=== PATIENT | male | born 1970 | race Caucasian/White ===

== ENCOUNTER 2017-11-17 18:15 | Emergency (ER) | payer OTHER, SELFPAY | END 2017-11-17 20:47 | disposition home or self-care (01) | PROVIDERS: Emergency Provider Nurse Practitioner; Visit Provider Nurse Practitioner | DX: S20.212A Contusion of left front wall of thorax, initial encounter (principal); W01.0XXA Fall on same level from slipping, tripping and stumbling without subsequent striking against object, initial encounter; F17.210 Nicotine dependence, cigarettes, uncomplicated; Z88.6 Allergy status to analgesic agent | CPT/HCPCS: 71101; 99201; G0238 ==

== ENCOUNTER 2018-02-11 19:33 | Emergency (ER) | payer OTHER, SELFPAY ==
[2018-02-11 19:34] VITALS: BP 142/79; PULSE 73; RESP 22; TEMP 37; O2SAT 96; BMI 31.7
--- NOTE | 2018-02-11 19:47 | CT_ITS ---
CT abdomen pelvis wo con CLINICAL INDICATION: Abdominal pain, generalized, abdominal distention ITS.REASON: hx of ascites ORDERING PHYSICIAN: Esteban Means MD PATIENT AGE: 47 years COMPARISON: None TECHNIQUE: Axial images obtained with sagittal and coronal reformats. PROCEDURE: Oral Contrast: None IV Contrast: None . FINDINGS: There is a medium-sized left-sided pleural effusion with compressive atelectatic changes. The liver has a shrunken irregular cirrhotic appearance. There is mild amount of ascites. Moderate amount fluid present around the gallbladder with a stone in the gallbladder neck region measuring 5 mm. Splenomegaly at 16 cm. Prominent paraesophageal and perisplenic and abdominal varices consistent with portal hypertension. There is infiltration of the mesenteric fat with diffuse ascites throughout the abdomen and pelvis. Infiltration may be related to the portal venous hypertension. Inflammatory or infectious process is not excluded. No evidence of appendicitis. No intestinal obstruction or free air.. No acute bony anomalies. There is mild mesenteric adenopathy IMPRESSION: 1. Moderate to large sized left pleural effusion with left lower lobe atelectasis. 2. Cirrhosis with portal venous hypertension with splenomegaly, paraesophageal and intra-abdominal varices, and a small amount of ascites. 3. Cholelithiasis. Moderate amount fluid is present around the gallbladder. 4. mild infiltration of mesenteric fat nonspecific. Mild mesenteric adenopathy nonspecific.
--- NOTE | 2018-02-11 19:47 | XR_ITS ---
XR chest 2V HISTORY: ITS.REASON: chest pain ORDERING PHYSICIAN: Esteban Means MD PATIENT AGE: 47 years COMPARISON: None available FINDINGS: Consolidation is present in the left lower lobe with left-sided medium-sized pleural effusion. The right lung and left upper lobe are clear. No acute bony anomalies. Unremarkable heart size. IMPRESSION: Medium-sized Left-sided pleural effusion with underlying atelectasis and/or infiltrate in the left lower lobe
[2018-02-11 19:58] LABS: Basophils # 0.1 K/mm3 (0-0.2); Basophils % 0.9 % (0.1-2.0); Eosinophils # 0.2 K/mm3 (0.0-0.4); Eosinophils % 3.5 % (0.1-12.0); Hematocrit 42.9 % (42.0-52.0); Hemoglobin 14.1 g/dL (14.1-18.0); Lymphocytes # 1.4 K/mm3 (0.7-4.5); Mean Corpuscular HGB Conc 32.9 g/dL (31.8-35.4); Mean Corpuscular Hemoglobin 35.4 pg (27.0-31.2); Mean Corpuscular Volume 107.6 fl (80-94); Mean Platelet Volume 8.7 fl (7.4-10.4); Monocytes # 0.4 K/mm3 (0.1-1.0); Monocytes % 7.4 % (1.7-9.3); Neutrophils # 3.1 K/mm3 (1.8-7.8); Neutrophils % 61.3 % (37.0-80.0); Platelet Count 79 K/mm3 (142-424); Red Blood Count 3.99 M/mm3 (4.60-6.20); Red Cell Distribution Width 15.8 % (11.5-17.5); White Blood Count 5.1 K/mm3 (4.8-10.8)
[2018-02-11 20:04] VITALS: BP 147/82; PULSE 77; RESP 21; O2SAT 97
[2018-02-11 20:21] LABS: Alanine Aminotransferase 71 U/L (12-78); Albumin Level 1.9 gm/dL (3.4-5.0); Albumin/Globulin Ratio 0.4 (1.1-1.8); Alkaline Phosphatase 381 U/L (46-116); Anion Gap 7.9 mEq/L (5-15); Aspartate Amino Transferase 120 U/L (15-37); Bilirubin,Total 3.5 mg/dL (0.2-1.0); Blood Urea Nitrogen 4 mg/dL (7-18); CKMB Relative Index 0.6 U/L (0-4.0); Calcium 7.2 mg/dL (8.5-10.1); Carbon Dioxide 24 mmol/L (21.0-32.0); Chloride 109 mmol/L (98-107); Creatine Kinase 116 U/L (39-308); Creatine Kinase MB 0.7 mg/ml (0.0-3.6); Creatinine Clearance Estimated 179 mL/min (0-300); Creatinine,Serum 0.71 mg/dL (0.70-1.30); Estimated Glomerular Filt Rate 119 ml/min (>60); GFR (African American) 145 ML/MIN (>60); Globulin 4.7 gm/dl (1.3-3.2); Glucose 131 mg/dL (74-106); Potassium 3.9 mmoL/L (3.5-5.1); Sodium 137 mmol/L (136-145); Total Protein,Serum 6.6 gm/dL (6.4-8.2); Troponin I < 0.02 ng/ml (0.00-0.06)
[2018-02-11 20:23] LABS: Ammonia 89 umol/L (19-54)
[2018-02-11 20:24] LABS: Microscopic, Urine URINE MICROSCOPIC (MICROSCOPIC)
[2018-02-11 20:27] LABS: Appearance,Urine CLEAR (Clear); Blood, Urine 1+ (Negative); Color,Urine ORANGE (Yellow); Glucose,Urine (UA) Negative (Negative); Ketones,Urine Negative (Negative); Leukocyte Esterase,Urine Negative (Negative); Nitrate,Urine Negative (Negative); PH,Urine 6.5 (5.0-8.5); Protein,Urine Negative (Negative); Specific Gravity, Urine >= 1.030 (1.005-1.030)
[2018-02-11 20:29] LABS: Amylase 73 U/L (25-125); Lipase 392 u/L (73-393)
[2018-02-11 20:33] LABS: Bilirubin,Urine 1+ (Negative)
[2018-02-11 20:38] LABS: Lactic Acid 0.7 mmol/L (0.4-2.0)
[2018-02-11 20:45] LABS: Amphetamine/Metha Screen,Urine Negative ng/mL (<1000); Barbiturates Screen,Urine Negative ng/mL (<200); Benzodiazepines Screen,Urine Negative ng/mL (200); Cannabinoid Screen,Urine Positive ng/mL (<50); Cocaine Screen,Urine Negative ng/g (<300); Methadone Screen,Urine Negative ng/mL (<300); Opiate Screen,Urine Negative ng/mL (<300); Phencyclidine Screen,Urine Negative ng/mL (<25)
[2018-02-11 20:52] LABS: Bacteria,Urine Trace /lpf; Mucus,Urine 3+ /lpf; RBC,Urine Occasional #/hpf (0-3); WBC,Urine Occasional #/hpf (0-3)
--- NOTE | 2018-02-11 20:52 | [facility].EDCP ---
ED Disposition Clinical Impression: Hepatic encephalopathy, Pleural effusion on left Cirrhosis Qualifiers: Hepatic cirrhosis type: unspecified hepatic cirrhosis Ascites presence: with ascites Qualified Code(s): K74.60 - Unspecified cirrhosis of liver Ascites Qualifiers: Ascites type: other type Qualified Code(s): R18.8 - Other ascites Disposition: Home, Self-Care Condition on Discharge: Good Instructions: DI for Cirrhosis Additional Instructions: increase lactulose to bid and see liver specialist or pcp this week Referrals: Provider,Referral, MD [Primary Care Provider] - - Critical Care Critical Care Time: No Attestation: On 02/11/18, the high probability of a clinically significant, sudden or life threatening deterioration of the following system(s) required my full and direct attention, intervention and personal management. The time I documented below is in addition to time spent performing reported procedures but includes the following listed in this critical care notation. Medical Decision Making - Medical Records Medical records reviewed: Yes: I reviewed the patient's medical records. - Herminio Inquiry Pt receiving controlled substance: No Vital Signs: 02/11/18 19:34 02/11/18 20:04 02/11/18 21:30 Temperature 98.6 F Temperature Source Oral Pulse Rate [Right Brachial] 73 77 76 Respiratory Rate 22 21 16 Blood Pressure [Right Arm] 142/79 147/82 142/77 Blood Pressure Mean [Right Arm] 100 103 98 Blood Pressure Source [Right Arm] Automatic Cuff Automatic Cuff Automatic Cuff Blood Pressure Position [Right Arm] Sitting Sitting Sitting 02 Sat by Pulse Oximetry 96 97 97 Oxygen Delivery Method Room Air Room Air Room Air - Lab Data Lab results reviewed: Yes: I reviewed the patient's lab results. Lab Results 02/11/18 19:45: WBC 5.1, RBC 3.99 L, Hgb 14.1, Hct 42.9, MCV 107.6 H, MCH 35.4 H, MCHC 32.9, RDW 15.8, Plt Count 79 L, MPV 8.7, Neut % (Auto) 61.3, Lymph % (Auto) 27.0, [place] % (Auto) 7.4, Eos % (Auto) 3.5, Baso % (Auto) 0.9, Neut # (Auto) 3.1, Lymph # (Auto) 1.4, [place] # (Auto) 0.4, Eos # (Auto) 0.2, Baso # (Auto) 0.1 02/11/18 19:45: Sodium 137, Potassium 3.9, Chloride 109 H, Carbon Dioxide 24, Anion Gap 7.9, BUN 4 L, Creatinine 0.71, Estimated Creat Clear 179, Estimated GFR 119, Est GFR ( Amer) 145, Glucose 131 H, Calcium 7.2 L, Total Bilirubin 3.5 H, AST 120 H, ALT 71, Alkaline Phosphatase 381 H, Total Creatine Kinase 116, CK-MB (CK-2) 0.7, CK-MB (CK-2) Rel Index 0.6, Troponin I < 0.02, Total Protein 6.6, Albumin 1.9 L, Globulin 4.7 H, Albumin/Globulin Ratio 0.4 L 02/11/18 19:45: Ammonia 89 H 02/11/18 19:45: B-Natriuretic Peptide 19 02/11/18 19:45: Amylase 73, Lipase 392 02/11/18 19:49: Urine Color [place], Urine Appearance Clear, Urine pH 6.5, Ur Specific [place] >= 1.030, Urine Protein Negative, Urine Glucose (UA) Negative, Urine Ketones Negative, Urine Blood 1+, Urine Nitrate Negative, Urine Bilirubin 1+ A, Urine Urobilinogen 1.0, Ur Leukocyte Esterase Negative, Urine RBC Occasional, Urine WBC Occasional, Ur Squamous Epith Cells 3-5, Urine Bacteria Trace, Urine Mucus 3+ 02/11/18 20:15: Lactic Acid 0.7 02/11/18 20:15: Urine Opiates Screen Negative, Ur Barbituates Screen Negative, Ur Phencyclidine Scrn Negative, Ur Amphetamines Screen Negative, U Methamphetamines Scrn Negative, U Benzodiazepines Scrn Negative, Urine Cocaine Screen Negative, U Marijuana (THC) Screen Positive H Result diagrams: 02/11/18 19:45 02/11/18 19:45 Orders (Tests/Meds): ED MEDICATIONS Generic Name Dose Route Start Last Admin Trade Name Freq PRN Reason Stop Dose Admin Lactulose 20 gm 02/12/18 09:00 02/11/18 21:24 Chronulac 20gm/30ml Udc PO 03/14/18 08:59 20 gm QID RAYA Administration ORDERS Category Date Time Status CT abdomen pelvis wo con Stat Cat Scan 02/11/18 19:47 Taken XR chest 2V Stat Exams 02/11/18 19:47 Taken Blood Culture Stat Micro 02/11/18 19:49 Ordered 12-lead EKG Request
--- NOTE | 2018-02-11 20:55 | ED_ITS ---
ED Disposition Clinical Impression: Hepatic encephalopathy, Pleural effusion on left Cirrhosis Qualifiers: Hepatic cirrhosis type: unspecified hepatic cirrhosis Ascites presence: with ascites Qualified Code(s): K74.60 - Unspecified cirrhosis of liver Ascites Qualifiers: Ascites type: other type Qualified Code(s): R18.8 - Other ascites Disposition: Home, Self-Care Condition on Discharge: Good Instructions: DI for Cirrhosis Additional Instructions: increase lactulose to bid and see liver specialist or pcp this week Referrals: Provider,Referral, MD [Primary Care Provider] - - Critical Care Critical Care Time: No Attestation: On 02/11/18, the high probability of a clinically significant, sudden or life threatening deterioration of the following system(s) required my full and direct attention, intervention and personal management. The time I documented below is in addition to time spent performing reported procedures but includes the following listed in this critical care notation. Medical Decision Making - Medical Records Medical records reviewed: Yes: I reviewed the patient's medical records. - Herminio Inquiry Pt receiving controlled substance: No Vital Signs: 02/11/18 19:34 02/11/18 20:04 02/11/18 21:30 Temperature 98.6 F Temperature Source Oral Pulse Rate [Right Brachial] 73 77 76 Respiratory Rate 22 21 16 Blood Pressure [Right Arm] 142/79 147/82 142/77 Blood Pressure Mean [Right Arm] 100 103 98 Blood Pressure Source [Right Arm] Automatic Cuff Automatic Cuff Automatic Cuff Blood Pressure Position [Right Arm] Sitting Sitting Sitting 02 Sat by Pulse Oximetry 96 97 97 Oxygen Delivery Method Room Air Room Air Room Air - Lab Data Lab results reviewed: Yes: I reviewed the patient's lab results. Lab Results 02/11/18 19:45: WBC 5.1, RBC 3.99 L, Hgb 14.1, Hct 42.9, MCV 107.6 H, MCH 35.4 H , MCHC 32.9, RDW 15.8, Plt Count 79 L, MPV 8.7, Neut % (Auto) 61.3, Lymph % ( Auto) 27.0, [place] % (Auto) 7.4, Eos % (Auto) 3.5, Baso % (Auto) 0.9, Neut # (Auto ) 3.1, Lymph # (Auto) 1.4, [place] # (Auto) 0.4, Eos # (Auto) 0.2, Baso # (Auto) 0.1 02/11/18 19:45: Sodium 137, Potassium 3.9, Chloride 109 H, Carbon Dioxide 24, Anion Gap 7.9, BUN 4 L, Creatinine 0.71, Estimated Creat Clear 179, Estimated GFR 119, Est GFR ( Amer) 145, Glucose 131 H, Calcium 7.2 L, Total Bilirubin 3.5 H, AST 120 H, ALT 71, Alkaline Phosphatase 381 H, Total Creatine Kinase 116, CK-MB (CK-2) 0.7, CK-MB (CK-2) Rel Index 0.6, Troponin I < 0.02, Total Protein 6.6, Albumin 1.9 L, Globulin 4.7 H, Albumin/Globulin Ratio 0.4 L 02/11/18 19:45: Ammonia 89 H 02/11/18 19:45: B-Natriuretic Peptide 19 02/11/18 19:45: Amylase 73, Lipase 392 02/11/18 19:49: Urine Color [place], Urine Appearance Clear, Urine pH 6.5, Ur Specific [place] >= 1.030, Urine Protein Negative, Urine Glucose (UA) Negative, Urine Ketones Negative, Urine Blood 1+, Urine Nitrate Negative, Urine Bilirubin 1+ A, Urine Urobilinogen 1.0, Ur Leukocyte Esterase Negative, Urine RBC Occasional, Urine WBC Occasional, Ur Squamous Epith Cells 3-5, Urine Bacteria Trace, Urine Mucus 3+ 02/11/18 20:15: Lactic Acid 0.7 02/11/18 20:15: Urine Opiates Screen Negative, Ur Barbituates Screen Negative, Ur Phencyclidine Scrn Negative, Ur Amphetamines Screen Negative, U Methamphetamines Scrn Negative, U Benzodiazepines Scrn Negative, Urine Cocaine Screen Negative, U Marijuana (THC) Screen Positive H Result diagrams: 02/11/18 19:45 02/11/18 19:45 Orders (Tests/Meds):
[2018-02-11 21:30] VITALS: BP 142/77; PULSE 76; RESP 16; O2SAT 97
[2018-02-11 22:05] VITALS: BP 149/83; PULSE 74; RESP 16; TEMP 36.8; O2SAT 97
== END 2018-02-11 22:14 | disposition home or self-care (01) ==
PROVIDERS: Emergency Provider Emergency Medicine
DX: K72.90 Hepatic failure, unspecified without coma (principal); K74.60 Unspecified cirrhosis of liver; R18.8 Other ascites; Z79.899 Other long term (current) drug therapy; F17.210 Nicotine dependence, cigarettes, uncomplicated
CPT/HCPCS: 71046; 74176; 80053; 80305; 81001; 82140; 82150; 82550; 82553; 83605; 83690; 83880; 84484; 85025; 87040; 93005; 99211; 99284